=== PATIENT | female | born 1945 | race Caucasian/White ===

== ENCOUNTER 2016-08-25 08:24 | Outpatient (CLI) | payer MEDICARE ==
[2016-08-25 08:49] LABS: INR-International Normal Ratio 1.7; Prothrombin Time 19.7 SEC (12.0-14.7)
== END 2016-08-25 08:25 ==
LOC: MADLABBHPM 08:24
PROVIDERS: ATTEND Family Medicine
DX: I35.9 Nonrheumatic aortic valve disorder, unspecified (principal)
CPT/HCPCS: 36415; 85610

== ENCOUNTER 2016-09-08 09:02 | Outpatient (CLI) | payer MEDICARE ==
[2016-09-08 09:32] LABS: INR-International Normal Ratio 2.1; Prothrombin Time 23.3 SEC (12.0-14.7)
== END 2016-09-08 09:03 | disposition home or self-care (01) ==
LOC: MADLABBHPM 09:02
PROVIDERS: ATTEND Family Medicine
DX: I35.9 Nonrheumatic aortic valve disorder, unspecified (principal)
CPT/HCPCS: 36415; 85610

== ENCOUNTER 2016-11-17 08:48 | Outpatient (CLI) | payer MEDICARE ==
[2016-11-17 09:27] LABS: INR-International Normal Ratio 2.6; Prothrombin Time 27.3 SEC (12.0-14.7)
== END 2016-11-17 08:49 | disposition home or self-care (01) ==
LOC: MADLABBHPM 08:48
PROVIDERS: ATTEND Family Medicine
DX: I35.9 Nonrheumatic aortic valve disorder, unspecified (principal)
CPT/HCPCS: 36415; 85610

== ENCOUNTER 2016-12-22 09:18 | Outpatient (CLI) | payer MEDICARE ==
[2016-12-22 09:45] LABS: Prothrombin Time 22.8 SEC (12.0-14.7)
== END 2016-12-22 09:19 | disposition home or self-care (01) ==
LOC: MADLABBHPM 09:18
PROVIDERS: ATTEND Family Medicine
DX: I35.9 Nonrheumatic aortic valve disorder, unspecified (principal)
CPT/HCPCS: 36415; 85610

== ENCOUNTER 2017-03-23 08:49 | Outpatient (CLI) | payer MEDICARE ==
[2017-03-23 10:17] LABS: Prothrombin Time 23.6 SEC (12.0-14.7)
[2017-03-23 10:25] LABS: #Basophils 0.1 thou/uL (0.0-0.2); #Lymphocytes 1.2 thou/uL (1.20-3.40); #Monocytes 0.6 thou/uL (0.11-0.59); #Neutrophils 3.1 thou/uL (1.40-6.50); %Basophils 0.9 % (0.0-1.0); %Eosinophils 16.5 % (0.0-10.0); %Lymphocytes 19.9 % (21.0-51.0); %Monocytes 10.3 % (0.0-10.0); %Neutrophils 52.4 % (42.0-75.0); Hemoglobin 15.4 g/dL (12.0-16.0); Mean Corpuscular Hemoglobin 28.7 pg (27.0-31.0); Mean Corpuscular Volume 89.7 fl (81.0-99.0); Mean Platelet Volume 7.9 fL (7.4-10.4); Platelet Count 148 thou/uL (130-400); RBC Distribution Width 12.9 % (11.5-14.5); Red Blood Cell (RBC) Count 5.36 mill/uL (4.20-5.40); White Blood Cell (WBC) Count 5.9 thou/uL (4.8-10.8)
[2017-03-23 10:35] LABS: Anion Gap 14 mmol/L (10-20); BUN (Urea Nitrogen) 18 mg/dL (9.8-20.1); Calc. Creatinine Clearance 0 mL/min (70-130); Calcium 9.4 mg/dL (7.8-10.44); Carbon Dioxide 27 mmol/L (23-31); Chloride 102 mmol/L (98-107); Estimated GFR-MDRD 53; Glucose 98 mg/dL (83-110); Potassium 3.9 mmol/L (3.5-5.1); Sodium 139 mmol/L (136-145)
== END 2017-03-23 08:50 | disposition home or self-care (01) ==
LOC: MADLABBHPM 08:49
PROVIDERS: ATTEND Family Medicine
DX: I35.9 Nonrheumatic aortic valve disorder, unspecified (principal); I10 Essential (primary) hypertension
CPT/HCPCS: 36415; 80048; 85025; 85610

== ENCOUNTER 2017-04-20 12:02 | Outpatient (CLI) | payer MEDICARE ==
[2017-04-20 12:49] LABS: INR-International Normal Ratio 2.3; Prothrombin Time 26.2 SEC (12.0-14.7)
== END 2017-04-20 12:03 | disposition home or self-care (01) ==
LOC: MADLABBHPM 12:02
PROVIDERS: ATTEND Family Medicine
DX: Z51.81 Encounter for therapeutic drug level monitoring (principal); I35.9 Nonrheumatic aortic valve disorder, unspecified; Z79.01 Long term (current) use of anticoagulants
CPT/HCPCS: 36415; 85610

== ENCOUNTER 2017-05-29 12:03 | Outpatient (CLI) | payer MEDICARE ==
[2017-05-29 12:49] LABS: INR-International Normal Ratio 2.5; Prothrombin Time 28.2 SEC (12.0-14.7)
== END 2017-05-29 12:04 | disposition home or self-care (01) ==
LOC: MADLABBHPM 12:03
PROVIDERS: ATTEND Family Medicine
DX: Z51.81 Encounter for therapeutic drug level monitoring (principal); I35.9 Nonrheumatic aortic valve disorder, unspecified; Z79.01 Long term (current) use of anticoagulants
CPT/HCPCS: 36415; 85610

== ENCOUNTER 2017-07-05 15:42 | Outpatient (CLI) | payer MEDICARE ==
[2017-07-05 16:27] LABS: INR-International Normal Ratio 3.2; Prothrombin Time 34.3 SEC (12.0-14.7)
--- NOTE | 2017-07-05 16:37 | RAD ---
RIGHT KNEE FOUR VIEWS: History: Right knee pain. FINDINGS/IMPRESSION: Mild-moderate degenerative changes are present. No fracture, dislocation, or bony destruction is iden tified. POS: [facility]
== END 2017-07-05 15:43 | disposition home or self-care (01) ==
LOC: MADLABBHPM 15:42
PROVIDERS: ATTEND Family Medicine
DX: M25.561 Pain in right knee (principal); M17.11 Unilateral primary osteoarthritis, right knee
CPT/HCPCS: 36415; 85610

== ENCOUNTER 2017-07-27 15:25 | Outpatient (CLI) | payer MEDICARE ==
--- NOTE | 2017-07-27 16:36 | RAD ---
LUMBAR SPINE THREE VIEWS: 07/27/17 HISTORY: Back pain. Fall in October 2016. FINDINGS/IMPRESSION: There is mild compression in the L1 vertebral body. There are mild degenerative changes with dextrosc oliosis of the lumbar spine. No subluxation is seen. POS: [facility]
== END 2017-07-27 15:26 | disposition home or self-care (01) ==
LOC: MADRAD 15:25
PROVIDERS: ATTEND Orthopaedic Surgery
DX: M54.5 Low back pain (principal); G95.29 Other cord compression; M47.896 Other spondylosis, lumbar region; M41.9 Scoliosis, unspecified
CPT/HCPCS: 72100

== ENCOUNTER 2017-08-02 10:51 | Outpatient (CLI) | payer MEDICARE ==
--- NOTE | 2017-08-02 11:47 | RAD ---
LEFT SHOULDER THREE VIEWS: INDICATIONS: Shoulder pain without trauma. FINDINGS: There is evidence of fracture involving the lateral aspect of the left clavicle. The patient does no t report a recent injury. Comparing to a prior radiograph from 01/19/2017, this finding was not pres ent. 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 Partially imaged sternotomy change and vascular calcification. IMPRESSION: Irregular morphology to the lateral left clavicle, indicative of a fracture. The possibility of a pa thologic fracture cannot be excluded, in light of the provided history of absent trauma. Recommend d edicated CT for further assessment. CODE T POS: [facility]
== END 2017-08-02 10:52 | disposition home or self-care (01) ==
LOC: MADRAD 10:51
PROVIDERS: ATTEND Family Medicine
DX: M25.512 Pain in left shoulder (principal)

== ENCOUNTER 2017-08-09 12:22 | Outpatient (CLI) | payer MEDICARE ==
[2017-08-09 13:19] LABS: INR-International Normal Ratio 2.9; Prothrombin Time 31.7 SEC (12.0-14.7)
--- NOTE | 2017-08-09 14:19 | CT ---
LEFT UPPER EXTREMITY CT WITHOUT IV CONTRAST: Date: 08/09/17 HISTORY: Pain left shoulder, follow-up left clavicle fracture. COMPARISON: 08/02/17 plain film examination. FINDINGS: There is evidence for a healing irregular fracture of the lateral third of the left clavicle with inf erior overriding. There is some bony callus. IMPRESSION: Evidence for a healing fracture of the lateral third of the left clavicle with some inferior overridi ng. POS: [facility]
== END 2017-08-09 12:23 | disposition home or self-care (01) ==
LOC: MADCT 12:22
PROVIDERS: ATTEND Family Medicine
DX: S42.009D Fracture of unspecified part of unspecified clavicle, subsequent encounter for fracture with routine healing (principal); S42.032D Displaced fracture of lateral end of left clavicle, subsequent encounter for fracture with routine healing
CPT/HCPCS: 36415; 85610